=== PATIENT | female | born 1955 | race American Indian/Alaskan Native ===

== ENCOUNTER 2021-04-03 13:43 | Outpatient (CLI) | payer MEDICARE ==
[2021-04-03 14:52] LABS: Blood Urea Nitrogen 12 mg/dL (7-17); Calcium 8.9 mg/dL (8.4-10.2); Hemolysis Index 32
[2021-04-03 15:43] LABS: BUN/Creatinine Ratio 17
== END 2021-04-03 13:44 | disposition home or self-care (01) ==
LOC: LAB 13:43
PROVIDERS: ATTEND Specialist
DX: H81.23 Vestibular neuronitis, bilateral (principal); E07.9 Disorder of thyroid, unspecified
CPT/HCPCS: 36415; 80048; 84443; 84479; 84480